=== PATIENT | male | born 1975 | race Caucasian/White ===

== ENCOUNTER → 2020-06-18 | Outpatient (CLI) | payer OTHER ==
--- NOTE | 2020-06-18 17:33 | RAD ---
EXAM: Left shoulder, 3 views. HISTORY: Trauma. COMPARISON: None. FINDINGS: 3 views of left shoulder obtained. There is no fracture, dislocation or subluxation. IMPRESSION: No acute osseous finding. Electronically signed by: Eli Garrido MD (06/18/2020 5:31 PM) [id number]
== END ==
LOC: RAD 13:33
PROVIDERS: ATTEND Physician Assistant
DX: M25.512 Pain in left shoulder (principal)
CPT/HCPCS: 73030